=== PATIENT | female | born 1965 | race African-American/Black ===

== ENCOUNTER 2016-09-16 13:48 | Emergency (ER) | payer OTHER ==
[2016-09-16] MEDS ORDERED: OPTIRAY 350 100 ML VIAL HMH IV ONE (13:49)
[2016-09-16] MEDS ORDERED: ONDANSETRON 4 MG VIAL ONE ×2 (16:35→19:04)
[2016-09-16] MEDS ORDERED: MORPHINE 4 MG/ML SYR ONE (19:05)
== END 2016-09-16 22:58 | disposition home or self-care (01) ==
LOC: ER 13:48
DX: R10.84 Generalized abdominal pain (principal); K59.00 Constipation, unspecified; K58.9 Irritable bowel syndrome, unspecified; K21.9 Gastro-esophageal reflux disease without esophagitis
CPT/HCPCS: 36415; 74022; 74177; 80053; 81001; 83690; 85025; 87088; 96374; 96375; 99284; J2270; J2405; Q9967